=== PATIENT | female | born 1990 | race Caucasian/White ===

== ENCOUNTER 2024-06-05 03:46 | Emergency (ER) | payer MEDICAID ==
[2024-06-05] MEDS ORDERED: Bupivacaine HCl 0.5%/Epinephrine 1:200,000/PF 30 ml Vial ONE (03:52)
[2024-06-05] MEDS ORDERED: Bupivacaine PF 0.5% 30 ML VIAL ONE (03:54)
== END 2024-06-05 04:52 | disposition home or self-care (01) ==
LOC: MADERS 03:46
DX: S60.00XA Contusion of unspecified finger without damage to nail, initial encounter (principal); F17.290 Nicotine dependence, other tobacco product, uncomplicated; Z59.00 Homelessness unspecified; Z55.6 Problems related to health literacy; X58.XXXA Exposure to other specified factors, initial encounter
CPT/HCPCS: 99283; J0665